=== PATIENT | female | born 1935 | race Caucasian/White ===

== ENCOUNTER 2017-12-22 09:03 | Day surgery (SDC) | payer MEDICARE, OTHER ==
[~2017-12-22 09:03] MED LIST: Acetaminophen TAB* 325 MG PO PRN; Buffered Lidocaine 0.9% SYRIN* 5 ML/SYR SYRINGE INTRADERM ONE
[2017-12-22] MEDS ORDERED: Midazolam* 1 MG/ML 2 ML VIAL (2 MG) ONE ×2 (10:17→10:46)
[2017-12-22] MEDS ORDERED: Tropicamide 1% OPTH.SOL* BTL ONE (11:04)
[2017-12-22] MEDS ORDERED: Lidocaine 1%* 5 ML VIAL ONE (11:04)
[2017-12-22] MEDS ORDERED: fentaNYL* 50 MCG/ML 2 ML VIAL (100 MCG VIAL) ONE (11:04)
[2017-12-22] MEDS ORDERED: Cyclopentolate 1% OPTH.SOL* 2 ML BTL ONE (11:04)
[2017-12-22] MEDS ORDERED: Phenylephrine 2.5% OPTH.SOL* 2 ML BTL ONE (11:04)
[2017-12-22] MEDS ORDERED: Ketorolac 0.5% OPHTH (NF) 0.5 % 5 ML BTL ONE (11:04)
[2017-12-22] MEDS ORDERED: Neomycin/Polymy/Dex OPHTH.OIN* 3.5 GM ONE (11:04)
[2017-12-22] MEDS ORDERED: Tetracaine 0.5% OPTH.SOL 4 ML* 1 DROP BTL ONE (11:04)
[2017-12-22] MEDS ORDERED: Phenylephr/Ketorolac 1%/0.3% OPH DROP BTL ONE (11:05)
[2017-12-22 11:23] VITALS: BP 135/74
--- NOTE | 2017-12-22 14:44 | OP ---
DATE OF OPERATION/DATE OF DICTATION: 12/22/2017 - [facility] DATE OF : 1935. SURGEON: Dr. Jarek Tatum. REAL ESTATE LEASING MANAGER: None. ANESTHESIA: Topical with intravenous sedation. PRE-OP DIAGNOSIS: Cataract, right eye. POST-OP DIAGNOSIS: Cataract, right eye. OPERATIVE PROCEDURE: Phacoemulsification and cataract extraction with posterior chamber intraocular lens implant, right eye. COMPLICATIONS: None. BLOOD LOSS: None. DESCRIPTION OF PROCEDURE: The patient was brought to the operating room and received a small amount of intra-venous sedation. A drop of Tetracaine was placed in her right eye. She was prepped and draped in the usual sterile fashion for ophthalmic surgery and attention was directed to the right eye where a speculum was placed. A paracentesis was created at the 11 o'clock position and 0.1 cc of 1 percent preservative-free Lidocaine was injected into the anterior chamber followed by DisCoVisc. The eye was digitally stabilized while a 2.75 mm keratome was used to create a triplanar clear corneal incision at the 9 o'clock position. A continuous curvilinear capsulorrhexis was created with a cystotome and Utrata forceps. BSS on a cannula was used to hydrodissect the lens from the capsule. Phacoemulsification was performed in a divide-and- conquer technique to create four fragments which were removed. Residual cortical material was removed with irrigation and aspiration. DisCoVisc was used to inflate the capsular bag and an AUOOTO 20.5 diopter lens was folded and inserted into the capsular bag. DisCoVisc was removed using irrigation and aspiration. BSS on a cannula was used to hydrate the corneal stroma and seal the wound. At the end of the case the pupil was round and the lens was centered. The eye was of normal pressure and the wound was water tight. The speculum was removed and topical Maxitrol ointment was placed on the surface of the eye. The eye was closed, patched and shielded and the patient was sent to the recovery room in stable condition with post operative instructions and follow-up appointment given. [id number] #: [id number] MTDD
== END 2017-12-22 11:35 | disposition home or self-care (01) ==
LOC: OREAST 09:03
PROVIDERS: ATTEND Ophthalmology
DX: H25.11 Age-related nuclear cataract, right eye (principal); E78.5 Hyperlipidemia, unspecified; I25.10 Atherosclerotic heart disease of native coronary artery without angina pectoris; K21.9 Gastro-esophageal reflux disease without esophagitis; M19.90 Unspecified osteoarthritis, unspecified site; M81.0 Age-related osteoporosis without current pathological fracture
CPT/HCPCS: A9270-GY; C9447; J2250; J3010; V2632

== ENCOUNTER 2017-12-29 07:39 | Day surgery (SDC) | payer MEDICARE, OTHER ==
[2017-12-29] MEDS ORDERED: Neomycin/Polymy/Dex OPHTH.OIN* 3.5 GM ONE (07:48)
[2017-12-29] MEDS ORDERED: Tropicamide 1% OPTH.SOL* BTL ONE (07:48)
[2017-12-29] MEDS ORDERED: Tetracaine 0.5% OPTH.SOL 4 ML* 1 DROP BTL ONE (07:48)
[2017-12-29] MEDS ORDERED: Lidocaine 1%* 5 ML VIAL ONE (07:48)
[2017-12-29] MEDS ORDERED: Phenylephrine 2.5% OPTH.SOL* 2 ML BTL ONE (07:48)
[2017-12-29] MEDS ORDERED: Cyclopentolate 1% OPTH.SOL* 2 ML BTL ONE (07:48)
[2017-12-29] MEDS ORDERED: Phenylephr/Ketorolac 1%/0.3% OPH DROP BTL ONE ×2 (07:48→11:04)
[2017-12-29] MEDS ORDERED: Ketorolac 0.5% OPHTH (NF) 0.5 % 5 ML BTL ONE (07:48)
[2017-12-29] MEDS ORDERED: Midazolam* 1 MG/ML 2 ML VIAL (2 MG) ONE (09:49)
[2017-12-29 10:35] VITALS: BP 141/70
--- NOTE | 2017-12-30 03:43 | OP ---
DATE OF OPERATION: 12/29/17 [facility] DATE OF : [birth year] SURGEON: Dr. Jarek Tatum. SALES PROJECT ENGINEER: None. ANESTHESIA: Topical with intravenous sedation. PRE-OP DIAGNOSIS: Cataract, left eye. POST-OP DIAGNOSIS: Cataract, left eye. OPERATIVE PROCEDURE: Phacoemulsification and cataract extraction with posterior chamber intraocular lens implant, left eye. COMPLICATIONS: None. BLOOD LOSS: None. DESCRIPTION OF PROCEDURE: The patient was brought to the operating room and received a small amount of intravenous sedation. A drop of Tetracaine was placed in her left eye. She was prepped and draped in the usual sterile fashion for ophthalmic surgery and attention was directed to the left eye where a speculum was placed. A paracentesis was created at the 5 o'clock position and 0.1 cc of 1 percent preservative-free Lidocaine was injected into the anterior chamber followed by DisCoVisc. The eye was digitally stabilized while a 2.75 mm keratome was used to create a triplanar clear corneal incision at the 3 o'clock position. A continuous curvilinear capsulorrhexis was created with a cystotome and Utrata forceps. BSS on a cannula was used to hydrodissect the lens from the capsule. Phacoemulsification was performed in a divide-and- conquer technique to create four fragments which were removed. Residual cortical material was removed with irrigation and aspiration. DisCoVisc was used to inflate the capsular bag and an AUOOTO 20.0 diopter lens was folded and inserted into the capsular bag. DisCoVisc was removed using irrigation and aspiration. BSS on a cannula was used to hydrate the corneal stroma and seal the wound. At the end of the case the pupil was round and the lens was centered. The eye was of normal pressure and the wound was water tight. The speculum was removed and topical Maxitrol ointment was placed on the surface of the eye. The eye was closed, patched and shielded and the patient was sent to the recovery room in stable condition with post operative instructions and follow-up appointment given. [id number]/[id number] #: [id number] BERTHA
== END 2017-12-29 10:40 | disposition home or self-care (01) ==
LOC: OREAST 07:39
PROVIDERS: ATTEND Ophthalmology
DX: H25.12 Age-related nuclear cataract, left eye (principal); I25.10 Atherosclerotic heart disease of native coronary artery without angina pectoris; K21.9 Gastro-esophageal reflux disease without esophagitis; E66.9 Obesity, unspecified
CPT/HCPCS: A9270-GY; C9447; J2250; V2632

== ENCOUNTER 2018-11-03 04:00 | Emergency (ER) | payer MEDICARE ==
[2018-11-03] MEDS ORDERED: NS 0.9% 1000 ML** 1,000 ML IV ONE (04:11)
[2018-11-03] MEDS ORDERED: Morphine 4 MG/ML VIAL (1 ml) 4 MG/ML VIAL IV ONE (04:13)
--- NOTE | 2018-11-03 04:17 | ED ---
Complex/Multi-Sys Presentation - HPI Summary HPI Summary: Patient is a 83 y/o F presenting to ED via EMS from [place] with complaints of impaired speech, difficulty with memory, BARTON, right hip pain, and right sided chest wall pain. EMS reported that they were called due to patient complaints of right sided rib pain and hip pain. She claims that she experienced a mechanical fall around a week ago. She states that she has been experiencing right sided chest wall pain and right hip pain with an exacerbation of pain this morning. During EMS transport, patient began to have complaints of BARTON and difficulty getting words out. However, in the room, the patient claims that her impaired speech and difficulty with memory onset earlier than this. She reports uncertainty of when impaired speech onset but endorses a last known well of 1530. In the room, she endorses sore throat. Fever and abdominal pain are denied. Inspiration is noted to aggravate chest wall pain. On triage, pain is rated 4/10, nothing is noted to aggravate/alleviate Sx. Home medications and allergies are reviewed. - History Of Current Complaint Chief Complaint: EDExtremityLower Hx Obtained From: Patient Onset/Duration: Lasting Hours - last known well of 1530 reported, Lasting Weeks - fall occurred a week ago, Still Present, Worse Since - rib and hip pain worsened this morning Timing: Constant, Hours - last known well of 1530 reported, Weeks - fall occurred a week ago Severity Currently: Moderate Severity Initially: Moderate Location: Pain At: - head, right ribs, right hip Character: Typical Headache Aggravating Factor(s): inspiration Alleviating Factor(s): nothing Associated Signs And Symptoms: Positive: Headache, Other - POSITIVE - IMPAIRED SPEECH, DIFFICULTY WITH MEMORY, RIGHT RIB AND RIGHT HIP PAIN, SORE THROAT. Negative: Abdominal Pain, Fever - Allergies/Home Medications Allergies/Adverse Reactions: Allergies Allergy/AdvReac Type Severity Reaction Status Date / Time amoxicillin [From Augmentin] Allergy GI Upset Verified 12/29/17 08:23 clavulanic acid Allergy GI Upset Verified 12/29/17 08:23 [From Augmentin] gatifloxacin Allergy Shortness Verified 12/29/17 08:23 of Breath metronidazole [From Flagyl] Allergy Unknown Verified 12/29/17 08:23 Reaction Details nitrofurantoin Allergy Unknown Verified 12/29/17 08:23 Reaction Details Quinolones Allergy Unknown Verified 12/29/17 08:23 Reaction Details Sulfa (Sulfonamide Allergy Unknown Verified 12/29/17 08:23 Antibiotics) Reaction Details CRAB/SHRIMP/LOBSTER Allergy Unknown Uncoded 12/29/17 08:23 Reaction Details PMH/Surg Hx/FS Hx/Imm Hx Endocrine/Hematology History: Denies: Hx Diabetes Cardiovascular History: Reports: Hx Hypercholesterolemia, Other Cardiovascular Problems/Disorders - CARDIAC CATH 2010, HLD Denies: Hx Hypertension, Hx Pacemaker/ICD Respiratory History: Reports: Other Respiratory Problems/Disorders - 03/01/16 recent cold GI History: Reports: Hx Diverticulosis, Hx Gastroesophageal Reflux Disease - ON MEDICATION FOR, Other GI Disorders - hx diverticulitis dx several yrs ago History: Denies: Hx Dialysis, Hx Renal Disease Musculoskeletal History: Reports: Hx Arthritis, Hx Osteoporosis, Other Musculoskeletal History - spinal stenosis, arthritis/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 BACK SURGERY- 3 YEARS AGO Hx Anesthesia Reactions: Yes - MANY YEARS AGO- X1 SLOW TO WAKE UP - Immunization History Date of Influenza Vaccine: 03/2013 Infectious Disease History: No Infectious Disease History: Denies: Traveled Outside the [place] in Last 30 Days - Family History Family History: FHx of Breast Cancer (Mother) - Social History Alcohol Use: Daily Alcohol Amount: 1 SHOT PER NIGHT Substance Use Type: Reports: None Smoking Status (MU): Never Smoked Tobacco Review of Systems Negative: Fever Positive: Sore Throat Negative: Abdominal Pain Musculoskeletal: Other - POSITIVE - RIGHT RIB PAIN, RIGHT HIP PAIN Neurological: Other - POSITIVE - IMPAIRED SPEECH, DIFFICULTY WITH MEMORY Positive: Headache All Other Systems Reviewed And Are Negative: Yes Physical Exam - Summary Physical Exam Summary: Appearance: well appearing, no pain distress Skin: warm, dry, reflects adequate perfusion Head/face: normal Eyes: EOMI, HALIMA ENT: mucous membranes moist Neck: supple, non-tender Respiratory: fine crackles are noted, breath sounds present Cardiovascular: RRR, pulses symmetrical Abdomen: non-tender, soft Bowel Sounds: present Musculoskeletal: normal, strength/ROM intact; pain at right lateral chest wall with no bruising Neuro: normal, sensory motor intact, A&Ox3, speech is fluent with some occasional slow speech, GCS 15, NIH 0 Triage Information Reviewed: Yes Vital Signs On Initial Exam: Initial Vitals Temp Pulse Resp BP Pulse Ox 97.6 F 72 18 165/77 95 11/03/18 04:03 11/03/18 04:03 11/03/18 04:03 11/03/18 04:03 11/03/18 04:03 Vital Signs Reviewed: Yes - Opal Coma Scale Best Eye Response: 4 - Spontaneous Best Motor Response: 6 - Obeys Commands Best Verbal Response: 5 - Oriented Coma Scale Total: 15 Diagnostics - Vital Signs Vital Signs Temp Pulse Resp BP Pulse Ox 11/03/18 04:03 97.6 F 72 18 165/77 95 - Laboratory Result Diagrams: 11/03/18 04:21 11/03/18 04:21 Lab Statement: Any lab studies that have been ordered have been reviewed, and results considered in the medical decision making process. - Radiology RIBS W/ CHEST X-RAY Radiology Interpretation Completed By: ED Physician Summary of Radiographic Findings: RIGHT CHEST WALL DEFORMITY CONSISTENT WITH RIB FRACTURES, PENDING OFFICIAL REPORT. RIGHT HIP/PELVIS X-RAY Radiology Interpretation Completed By: ED Physician Summary of Radiographic Findings: DEGENERATIVE CHANGES, CANNOT RULE OUT FRACTURE AT RIGHT FEMORAL NECK, PENDING OFFICIAL REPORT. - CT BRAIN CT CT Interpretation Completed By: Radiologist Summary of CT Findings: IMPRESSION: 1. No acute intracranial abnormality. 2. Moderate parechymal volume loss with interval worsening of microvascular. white matter disease since prior study of 2013. THIS REPORT WAS REVIEWED BY DR. ROMAN. RIGHT PELVIC CT CT Interpretation Completed By: Radiologist Summary of CT Findings: IMPRESSION: Apparent linear cortical lucency in the right ischium, best seen on image 84. series 3, which may represent a nondisplaced fracture. THIS REPORT WAS REVIEWED BY DR. ROMAN. - EKG 0453 Cardiac Rate: NL - rate of 62 BPM EKG Rhythm: Sinus Rhythm ST Segment: Non-Specific Summary of EKG Findings: EKG showed sinus rhythm with rate of 62 BPM, normal axis, non-specific ST. National Institutes Of Health - NIH Scale Level of Consciousness: Alert/Keenly Responsive Ask Patient the Month and His/Her Age: Both Correct Ask Pt to Open/Close Eyes and Teacher Aide Clerical/Release Non-Paretic Hand: Both Correctly Best Gaze (Only Horizontal Eye Movement): Normal Visual Field Testing: No Visual Loss Facial Paresis-Pt to Smile & Close Eyes or Grimace Symmetry: Normal/Symmetrical Motor Function - Right Arm: No Drift-Holds 10 Seconds Motor Function - Left Arm: No Drift-Holds 10 Seconds Motor Function - Right Leg: No Drift-Holds 10 Seconds Motor Function - Left Leg: No Drift-Holds 10 Seconds Limb Ataxia-Must be out of Proportion to Weakness Present: Absent Sensory (Use Pinprick to Test Arms/Legs/Trunk/Face): Normal Best Language (Describe Picture, Name Items): No Aphasia Dysarthria (Read Several Words): Normal Extinction and Inattention: No Abnormality Total Score: 0 Re-Evaluation - Re-Evaluation First Eval Re-Evaluation Time: 06:25 Change: Improved Comment: Patient reports improvement of pain, word finding is better. Discussed results of labs and tests with the patient. She is agreeable with admission. Complex Multi-Symp Course/Dx Course Of Treatment: Patient with several complaints today. She has pain in her right chest wall and right hip after falling. There are fractures of the ribs and a nondisplaced fracture the issue him on CT. She also had difficulty with word finding though her NIH stroke score was 0 at time of arrival. There is some occasional slowed speech but she has fluent. Her head CT and stroke workup otherwise have been negative. She was improving with hydration and treatment of discomfort. A Lidoderm patch has made her chest wall much better. She will be admitted for physical therapy, orthopedics, neurology evaluation. Hospitalist team will admit. - Diagnoses Differential Diagnoses/HQI/PQRI: CVA, Metabolic Abnormality, Sepsis, Urinary Tract Infection, Other - Rib, hip fractures Provider Diagnoses: Right rib fracture, Hip fracture, right, Mild aphasia, TIA (transient ischemic attack) - Physician Notifications Discussed Care Of Patient With: Sola Vogel Time Discussed With Above Provider: 06:32 Instructed by Provider To: Other - 0632 - Patient's case was discussed with Dr. Vogel, Dr. Vogel accepts for admission. - Critical Care Time Critical Care Time: 30-74 min - CCT is EXCLUSIVE of separately billable procedures. Discharge - Sign-Out/Discharge Documenting (check all that apply): Patient Departure - admit Patient Received Moderate/Deep Sedation with Procedure: No - Discharge Plan Condition: Fair Disposition: ADMITTED TO [facility] Referrals: Owen Moraes MD [Primary Care Provider] - - Billing Disposition and Condition Condition: FAIR Disposition: Admitted to [facility] - Attestation Statements Document Initiated by Scribe: Yes Documenting Scribe: DUSTIN TEMPLE Provider For Whom Scribe is Documenting (Include Credential): TL ROMAN MD Scribe Attestation: IDUSTIN, scribed for TL ROMAN MD on 11/03/18 at 0707. Scribe Documentation Reviewed: Yes Provider Attestation: The documentation as recorded by the DUSTIN patel accurately reflects the service I personally performed and the decisions made by me, TL ROMAN MD Status of Scribe Document: Viewed
[2018-11-03 04:30] LABS: ABS Basophils 0.1 10^3/ul (0-0.2); ABS Eosinophils 0.3 10^3/ul (0-0.6); ABS Lymphocytes 3.6 10^3/ul (1.0-4.8); ABS Neutrophils 3.7 10^3/ul (1.5-7.7); Eosinophil % 3.6 %; Hematocrit 37 % (35-47); Hemoglobin 12.4 g/dL (12.0-16.0); Lymphocyte % 41.5 %; Mean Corpuscular HGB Conc 33 g/dL (31-36); Mean Corpuscular Hemoglobin 30 pg (27-31); Mean Corpuscular Volume 91 fL (80-97); Mean Platelet Volume 7.4 fL (7.4-10.4); Platelet Count 368 10^3/uL (150-450); Red Cell Distribution Width 14 % (10.5-15); White Blood Count 8.6 10^3/uL (3.5-10.8)
[2018-11-03 04:36] LABS: Activated Partial Thrombo Time 30.6 seconds (26.0-36.3); INR 0.89 (0.82-1.09)
[2018-11-03 04:46] LABS: Albumin 4.1 g/dL (3.2-5.2); Albumin/Globulin Ratio 1.6 (1-3); BUN/Creatinine Ratio 12.2 (8-20); Calcium 9.8 mg/dL (8.6-10.3); EGFR African American 90.5 (>60); EGFR Non-African American 74.8 (>60); Globulin 2.6 g/dL (2-4); HDL Cholesterol 51.1 mg/dL; Potassium 4.1 mmol/L (3.5-5.0); Total Bilirubin 0.2 mg/dL (0.2-1.0); Total Protein 6.7 g/dL (6.4-8.9)
[2018-11-03 04:47] LABS: Troponin I 0.01 ng/mL (<0.04)
[2018-11-03] MEDS ORDERED: Lidocaine PATCH 5%* 1 PATCH TRANSDERM ONE (05:11)
[2018-11-03 05:22] LABS: Urine Appearance Clear; Urine Bacteria Absent (Absent); Urine Bilirubin Negative (Negative); Urine Blood 1+ (Negative); Urine Color Straw; Urine Glucose Negative (Negative); Urine Ketones Negative (Negative); Urine Nitrite Negative (Negative); Urine Protein Negative (Negative); Urine Red Blood Cell Trace(0-2/hpf) (Absent); Urine Specific Gravity 1.003 (1.010-1.030); Urine Squamous Epithelial Cell Present (Absent); Urine Urobilinogen Negative (Negative); Urine White Blood Cell Absent (Absent)
[2018-11-03] MEDS ORDERED: Aspirin 81 mg CHEW TAB* 81 MG TAB.CHEW PO ONE (06:26)
--- NOTE | 2018-11-03 10:26 | UC ---
- Progress Note Progress Note: Pt was to be admitted to the hospitalist at signout Pt was just evaluated by Dr. Alarcon - pt requesting d/c home - she will provide full consult note REquested I write discharge instructioins for pt - Rx lidocaine f/u with PCP within 1 week - call today to schedule Dr. Moraes will order outpt PT at [facility] Course/Dx - Diagnoses Provider Diagnoses: Right rib fracture, Hip fracture, right, Mild aphasia, TIA (transient ischemic attack) - Provider Notifications Time Discussed With Above Provider: 06:32 Instructed by Provider To: Other - 0632 - Patient's case was discussed with Dr. Vogel, Dr. Vogel accepts for admission. - Critical Care Time Critical Care Time: 30-74 min - CCT is EXCLUSIVE of separately billable procedures. Discharge - Sign-Out/Discharge Documenting (check all that apply): Patient Departure Patient Received Moderate/Deep Sedation with Procedure: No - Discharge Plan Condition: Improved Disposition: HOME Prescriptions: Lidocaine PATCH 5%* [Lidoderm 5% Patch*] 1 patch TRANSDERM DAILY #30 patch Patient Education Materials: Pelvic Fracture (ED), Rib Contusion (ED) Referrals: Michael Renteria MD [Medical Doctor] - Owen Moraes MD [Primary Care Provider] - (You have an appointment schedule with Dr. Moraes at 11/19/18 at 10:30-am ) Additional Instructions: Okay to use lidocaine pain patches as prescribed - place over ribs - apply for 12 hours, remove for [address] Moraes will be ording physical therapy for care at [facility] Okay to take Tylenol as needed for pain Take deep, slow breaths You have an appointment scheduled with Dr. Moraes November 19 at 10:30am Contact the orthopedic provider, Dr. Renteria, for follow-up regarding your pelvic fracture - - Billing Disposition and Condition Condition: IMPROVED Disposition: Home
--- NOTE | 2018-11-03 10:52 | CONSULT ---
Subjective Date of Service: 11/03/18 Interval History: 83 yo F with PMH CAD, chronic low back pain, HLD, depression, possibly mild cognitive impairment who came to the emergency room via EMS on the morning on with several complaints. Lakeshia reports she had a fall one week ago, mechanical, fell onto R hip without LOC or head trauma. She has had waxing and waining pain responsive tsult. Pain is sharp and shooting, radiates to sternum from R axilla, reproducible by pressing, R hip pain starts in low back and radiates 4/10, not far off of baseline.o Tylenol and Ibuprofen but this morning had acute pain that awoke her form sleep under R breast as well as R hip, she decided to call EMS as a re Apparently en route to ER EMS notes pt had word finding difficulty, slurred speech, this completely resolved by time of arrival to ER. Her NIH stroke scale was 0 and GCS was 15. The event lasted for only a few seconds. She is AOx3 at baseline and independent in IADLS, moved to [place] a year ago after having difiuclty keeping up w/ reposnibility of her house On further review with her and her son, they report she has had "spells" like this word finding and slurred speech during times of anxiety and depression for years, they also reveal she has mild cognitive impairment and hx of short term memory loss that has been going on for a year "or two" which actually prompted the move to [place]. They are wholly unconcerned about the event and I offer her workup for TIA, they decline. Her ER course is notable for normal vitals, labs, and brain imaging. In regards ot her MSK complaints she is read to have a hairline ischial fracture, rib imaging unremarkable, pain completely resided with lidocaine patch. Ortho was paged and Dr Renteria read the CT himself and recommends weight bearing as tolerated and outpatient PT, no interventions I reached out to Dr. Macedo office who will send order for outpatient PT, pt and her son very much want to be d/c to home as she has a book club to attend in the evening. She feels pain is wholly resolved and they are not concerned about her word finding event and decline any further workup as she says its not really within her goals of care. 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 [place], Social: Drinks 1 glass wine nightly, Tob: Never, Illicits: Never Past Medical History: Unchanged from Admission - GERD, CAD, ?MCI, HLD, chronic low back s/p distant back surgery Review of Systems - Measurements Intake and Output: Intake and Output Last 24 Hours 11/01/18 11/02/18 11/03/18 11/04/18 06:59 06:59 06:59 06:59 Intake Total 1000 Balance 1000 Weight 180 lb Intake: IV Fluids 1000 - Review of Systems Constitutional Symptoms: Negative: Weight Gain, Weight Loss, Weakness, Fatigue, Fever, Night Sweats, Unexplained Falls, Other Dermatology: Negative: Normal, Rash, Skin Lesions, Cancer, Skin Lumps, Other HEENT: Negative: Normal, Change in Hearing, Vertigo, Dental Problems, Tinnitus, Sinus Problem, Other Eyes: Negative: Normal, Change in Vision, Double Vision, Eye Pain, Glaucoma, Cataract, Contacts or Glasses, Other Thyroid: Negative: Normal, Goiter, Thyroid Nodule, Cold Intolerance, Heat Intolerance , Sweatiness, Tremor, Frequent Defecation, Constipation, Palpitations, Primary Hypothyroidism, Primary Hyperthyroidism, Weight Loss, Weight Gain, Change in Skin/Hair, Change in Menstruation, Radiation Exposure, Other Pulmonary: Negative: Normal, Cough, Sputum, Hemoptysis, Wheezing, Respiratory Distress, Shortness of Breath, COPD, Asthma, Exercise Intolerance, Home Oxygen, Other Cardiology: Negative: Normal, Chest Pain, Shortness of Breath, Palpitations, Swelling of Ankles, Peripheral Vascular Dis, Edema, Faintness, Syncope, Claudication, Proximal NocturnalDyspnea, Orthopnoea, Other Gastroenterology: Negative: Normal, Abdominal Pain, Nausea, Vomiting, Anorexia, Indigestion, Difficulty Swallowing, Heartburn, Constipation, Diarrhea, Blood in Stools, Change in Bowel Habits, Haematemesis, Melena, Other Genital - Urinary: Negative: Normal, Dysuria, Hematuria, Polyuria, Nocturia, Other Genitourinay - Female: Negative: Menses Normal, Vaginal Discharge, Menopause, Dysmenorrhea, Other Musculoskeletal: Positive: Joint Pain, Arthritis, Sciatica Endocrinology: Negative: Normal, Thyroid Problems, Adrenal Problems, Gonadal Problems, Family Hx Endocrine Disorders, Obesity, Diabetes Mellitus, Hyperglycemia, Hx Hypoglycemia, Diabetic Foot Ulcers, Calluses, Hirsutism, Menstrual Abnormalities , Polydipsia, Polyuria, Gonadal Problems, Gynecomastia, Pituitary disease, Other Hematologic/Lymphatic: Negative: Anemia, Easy Bruising, Hx Leukemia, Hx Lymphoma, Use of Anticoagulant, Use of Antiplatelet Drugs, Other Neurology: Positive: Change in Speech - Chronic-during stress/anxiety Psychiatry: Positive: Depression - Worsening since dog , Anxiety Allergic/Immunologic: Negative: Hx Anaphylaxis, Hx Angioedema, Hx Environmental, Hx Seasonal, Asthma, Hx HIV, Immunocompromise, Swollen Glands LymphNodes, Other Objective Active Medications: Pharmacy Profile Note (Lidocaine Patch Remove*) 1 note PATCH OFF 1730 ELLEN Vital Signs - 8 hr 11/03/18 11/03/18 11/03/18 04:03 04:11 05:00 Temperature 97.6 F Pulse Rate 72 62 61 Respiratory 18 19 20 Rate Blood Pressure 165/77 150/96 (mmHg) O2 Sat by Pulse 95 95 94 Oximetry 11/03/18 11/03/18 11/03/18 05:15 05:35 06:00 Temperature Pulse Rate 59 58 Respiratory 24 21 19 Rate Blood Pressure 166/70 154/84 (mmHg) O2 Sat by Pulse 95 94 Oximetry 11/03/18 11/03/18 06:12 06:42 Temperature Pulse Rate Respiratory 17 19 Rate Blood Pressure 137/82 140/67 (mmHg) O2 Sat by Pulse Oximetry Oxygen Devices in Use Now: None Appearance: Pleasant woman in NAD in stretcher Eyes: No Scleral Icterus, PERRLA Ears/Nose/Mouth/Throat: NL Teeth, Lips, Gums, Clear Oropharnyx, Mucous Membranes Moist Neck: NL Appearance and Movements; NL JVP Respiratory: Symmetrical Chest Expansion and Respiratory Effort, Clear to Auscultation Cardiovascular: NL Sounds; No Murmurs; No JVD, RRR Abdominal: NL Sounds; No Tenderness; No Distention, No Hepatosplenomegaly, - - Distended Lymphatic: No Cervical Adenopathy, No Axillary Adenopathy Extremities: No Edema Skin: No Rash or Ulcers Neurological: Alert and Oriented x 3, NL Sensation, NL Muscle Strength and Tone , - - Gait is slow and careful. CN 2-12 intact, 5/5 strength in all 4 limbs, tearful at times when discussing dog Result Diagrams: 11/03/18 04:21 11/03/18 04:21 Diagnostic Imaging: CT Pelvis: Small non discplaced fracture R ischeium Rib Radiograph: Neg CTH: Parencymal volume loss but no acute intracranial abnormality Assessment/Plan - Billing 83 yo F with PMH CAD, chronic low back pain, HLD, depression, possibly mild cognitive impairment who came to the emergency room via EMS on the morning on with c/o hip pain found to have R non dispclaced ischial fracture that orthopedics reported no intervention is needed aside from pain control and PT She also has sub acute memory issues that seem related to depression, possible MCI, without any findings of acute CVA we offer further neuro workup but she and her son decline Plan By Medical Problem: 1. R ischial non discplaced hairline fracture: WBAT, ortho reviewed scans, pain control Tylenol Ibuprofen and lidocaine patches (we will rx) -Consider DEXA as an outpatient -Continue PT 2. Mild Cog impairment: PCP to workup as patient allows, consider tx for geriatric depression 3. CAD: Trop neg, no active issues, consider statin 4. CLBP: Hardware in place on imaging, no red flag features, conservative 5. GERD: PPI 5. Code status: DNR DNI She is stable for d/c from a medical standpoint, we have arranged for outpatient PT at [facility] and set up an appt with Dr. Macedo office, IRWIN Regan on November 19 at 10:30AM Thank you for this interesting consult, please call medicine for questions Attending: Rhea Alarcon
[2018-11-03 11:42] VITALS: BP 145/92
[2018-11-03] MEDS ORDERED: Lidocaine Patch REMOVE* 1 NOTE MISC PATCH OFF SCH (17:30)
== END 2018-11-03 11:43 | disposition home or self-care (01) ==
LOC: ED 04:00
DX: G45.9 Transient cerebral ischemic attack, unspecified (principal); S22.31XA Fracture of one rib, right side, initial encounter for closed fracture; S72.001A Fracture of unspecified part of neck of right femur, initial encounter for closed fracture; R47.01 Aphasia; W19.XXXA Unspecified fall, initial encounter; K21.9 Gastro-esophageal reflux disease without esophagitis; Z79.899 Other long term (current) drug therapy
CPT/HCPCS: 36415; 70450; 72192; 80053; 80061; 81003; 81015; 83605; 84484; 85025; 85610; 85730; 86850; 86900; 86901; 87086; 93005; 96361; 96374; 99282; A9270-GY; J2270

== ENCOUNTER 2019-09-06 11:27 | Emergency (ER) | payer MEDICARE ==
--- NOTE | 2019-09-06 11:36 | ED ---
Dizziness - HPI Summary HPI Summary: This patient is an 84 y/o female presenting to [facility] via EMS c/o dizziness x2 weeks. Patient describes dizziness as room spinning and states these episodes last hours. She reports dizziness is constant but there are periods where her dizziness becomes worse. EMS states patient has had two episodes where she almost passed out. Patient notes a few days ago had dizziness and when she tried to get out of bed she "smashed" on the side of the bed. Denies any fever, tinnitus, weakness in arms or legs, chest pain palpitations. Patient reports both legs ache and currently has back pain. She uses a walker for ambulation. Patient denies any PMHx. She only takes supplements every day. Patient denies tobacco, alcohol, and drug use. Patient lives at home alone. Medications reviewed. Allergies noted. - History Of Current Complaint Stated Complaint: DIZZINESS PER EMS Hx Obtained From: Patient Onset/Duration: Still Present Timing: Weeks Severity Currently: Mild Character: Room Spinning Aggravating Factor(s): Nothing Alleviating Factor(s): Nothing Associated Signs And Symptoms: Positive: Other:. Negative: Tinnitus, Chest Pain , Palpitations, Fever - Allergies/Home Medications Allergies/Adverse Reactions: Allergies Allergy/AdvReac Type Severity Reaction Status Date / Time amoxicillin [From Augmentin] Allergy GI Upset Verified 09/06/19 11:38 clavulanic acid Allergy GI Upset Verified 09/06/19 11:38 [From Augmentin] gatifloxacin Allergy Shortness Verified 09/06/19 11:38 of Breath metronidazole [From Flagyl] Allergy Unknown Verified 09/06/19 11:38 Reaction Details nitrofurantoin Allergy Unknown Verified 09/06/19 11:38 Reaction Details Quinolones Allergy Unknown Verified 09/06/19 11:38 Reaction Details Sulfa (Sulfonamide Allergy Unknown Verified 09/06/19 11:38 Antibiotics) Reaction Details CRAB/SHRIMP/LOBSTER Allergy Unknown Uncoded 09/06/19 11:38 Reaction Details Home Medications: Home Medications Aspirin 81 mg CHEW TAB* 81 mg PO DAILY 08/25/12 [History Confirmed 09/06/19] Omeprazole CAP (NF) [Prilosec CAP* 20 MG] 40 mg PO DAILY 08/25/12 [History Confirmed 09/06/19] Multivitamin [Multivitamins] 1 cap PO DAILY 10/05/13 [History Confirmed 09/06/19 ] Lactobacillus Acidophilus [Probiotic] 1 cap PO DAILY 03/01/16 [History Confirmed 09/06/19] Calcium Carb/Mag Ox/Zinc Sulf [Calcium & Magnesium + Zin 334-134-5 mg] 1 tab PO TID 09/06/19 [History Confirmed 09/06/19] Cyclosporine 0.05% OPHTH (NF) [Restasis 0.05% OPHTH] 0.05 % BOTH EYES Q12H 09/05 [History Confirmed 09/06/19] EPINEPHrine [Epipen-Jr 2-King] 0.15 mg IM ONCE PRN 09/06/19 [History Confirmed ] Meclizine TAB* [Antivert 12.5 TAB*] 25 mg PO TID PRN #12 tab 09/06/19 [Rx] Red Yeast Rice 1,200 mg PO BID 09/06/19 [History Confirmed 09/06/19] PMH/Surg Hx/FS Hx/Imm Hx Endocrine/Hematology History: Denies: Hx Diabetes, Hx Thyroid Disease Cardiovascular History: Reports: Hx Hypercholesterolemia, Other Cardiovascular Problems/Disorders - CARDIAC CATH 2010, HLD Denies: Hx Hypertension, Hx Pacemaker/ICD, Hx Peripheral Vascular Disease Respiratory History: Reports: Other Respiratory Problems/Disorders - 03/01/16 recent cold GI History: Reports: Hx Diverticulosis, Hx Gastroesophageal Reflux Disease - ON MEDICATION FOR, Other GI Disorders - hx diverticulitis dx several yrs ago History: Denies: Hx Dialysis, Hx Renal Disease Musculoskeletal History: Reports: Hx Arthritis, Hx Osteoporosis, Other Musculoskeletal History - spinal stenosis, arthritis/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 Sensory History: Reports: Hx Hearing Aid - LEFT EAR Denies: Hx Cataracts, Hx Contacts or Glasses, Hx Glaucoma Opthamlomology History: Denies: Hx Cataracts, Hx Contacts or Glasses, Hx Glaucoma Neurological History: Reports: Hx Headaches, Other Neuro Impairments/Disorders - sciatica right chronic Psychiatric History: Reports: Hx Anxiety, Hx Depression - Worsening since dog Denies: Hx Panic Disorder - Cancer History Hx Chemotherapy: No Hx Radiation Therapy: No - Surgical History Surgical History: Yes Surgery Procedure, Year, and Place: PARTIAL HYSTERECTOMY ,GALLBLADDER 1999, APPENDECTOMY, heart cath 2010. BACK SURGERY- 3 YEARS AGO Hx Anesthesia Reactions: Yes - MANY YEARS AGO- X1 SLOW TO WAKE UP - Immunization History Date of Influenza Vaccine: 03/2013 Infectious Disease History: No Infectious Disease History: Denies: Traveled Outside the [place] in Last 30 Days - Family History Family History: FHx of Breast Cancer (Mother) - Social History Alcohol Use: Daily Alcohol Amount: 1 SHOT PER NIGHT Substance Use Type: Reports: None Smoking Status (MU): Never Smoked Tobacco Review of Systems Negative: Fever Negative: Other - NEGATIVE: tinnitus Negative: Palpitations, Chest Pain Musculoskeletal: Other - POSITIVE: leg pain Neurological/Mental Status: Other - POSITIVE: dizziness Negative: Weakness All Other Systems Reviewed And Are Negative: Yes Physical Exam - Summary Physical Exam Summary: Constitutional: Well-developed, Well-nourished, Alert. (-) Distressed Skin: Warm, Dry HENT: Normocephalic; Atraumatic Eyes: Conjunctiva normal. No nystagmus. Neck: Musculoskeletal ROM normal neck. (-) JVD, (-) Stridor, (-) Tracheal deviation Cardio: Rhythm regular, rate normal, Heart sounds normal; Intact distal pulses. Radial pulses are 2+ and symmetric. (-) Murmur Pulmonary/Chest wall: Effort normal. (-) Respiratory distress, (-) Wheezes, (-) Rales Abd: Soft. (-) Tenderness, (-) Distension, (-) Guarding, (-) Rebound Musculoskeletal: (-) Edema Lymph: (-) Cervical adenopathy Neuro: Alert, Oriented x3, Strength normal, Cranial nerves II-XII are grossly intact. (-) Dysmetria, (-) Nystagmus, (-) Ataxia by finger to nose testing, (-) Sensory deficit. Psych: Mood and affect Normal Triage Information Reviewed: Yes Vital Signs On Initial Exam: Initial Vitals Temp Pulse Resp BP Pulse Ox 98.6 F 72 18 199/98 98 09/06/19 11:28 09/06/19 11:28 09/06/19 11:28 09/06/19 11:28 09/06/19 11:28 Vital Signs Reviewed: Yes Procedures - Sedation Patient Received Moderate/Deep Sedation with Procedure: No Diagnostics - Vital Signs Vital Signs Temp Pulse Resp BP Pulse Ox 09/06/19 11:28 98.6 F 72 18 199/98 98 - Laboratory Result Diagrams: 09/06/19 11:54 09/06/19 11:54 Lab Statement: Any lab studies that have been ordered have been reviewed, and results considered in the medical decision making process. - CT Head/Neck CTA CT Interpretation Completed By: Radiologist Summary of CT Findings: IMPRESSION: 1. Chronic small vessel ischemic change. 2. Atherosclerosis. 3. No internal carotid artery stenosis by nascet criteria. 4. No aneurysm, vascular malformation, occlusion, or stenosis of the visualized intracranial circulation. Dr. Willingham has reviewed this report. - EKG 11:45 Cardiac Rate: NL - at 66 bpm EKG Rhythm: Sinus Rhythm EKG Comparison: No Significant Change - from prior on 11/03/18. Summary of EKG Findings: EKG at 1145 shows sinus rhythm at a rate of 66 bpm. No change from prior EKG on 11/03/18. This EKG was interpreted and reviewed by ED physician. National Institutes Of Health - NIH Scale Level of Consciousness: Alert/Keenly Responsive Ask Patient the Month and His/Her Age: Both Correct Ask Pt to Open/Close Eyes and Spout Worker/Release Non-Paretic Hand: Both Correctly Best Gaze (Only Horizontal Eye Movement): Normal Visual Field Testing: No Visual Loss Facial Paresis-Pt to Smile & Close Eyes or Grimace Symmetry: Normal/Symmetrical Motor Function - Right Arm: No Drift-Holds 10 Seconds Motor Function - Left Arm: No Drift-Holds 10 Seconds Motor Function - Right Leg: No Drift-Holds 10 Seconds Motor Function - Left Leg: No Drift-Holds 10 Seconds Limb Ataxia-Must be out of Proportion to Weakness Present: Absent Sensory (Use Pinprick to Test Arms/Legs/Trunk/Face): Normal Best Language (Describe Picture, Name Items): No Aphasia Dysarthria (Read Several Words): Normal Extinction and Inattention: No Abnormality Total Score: 0 Re-Evaluation - Re-Evaluation First Eval Re-Evaluation Time: 11:41 Comment: Jean-Claude, ED RN, states patient is reporting disturbances she describes as "lightning and color changes". Also reports throat pain and tongue itching that started a few minutes ago. Second Eval Re-Evaluation Time: 14:33 Change: Improved Comment: Patient was ambulated. She feels safe going home. Dizzy Course/Dx - Course Course Of Treatment: Patient is here with episodic vertigo over the past 2 weeks. Patient has a normal neurologic exam upon arrival. She had a CTA of her head/neck which was unremarkable for any acute changes. Patient had blood performed as grossly unremarkable. Patient had an EKG which showed no ischemic changes or evidence of underlying arrhythmia. Patient was able to ambulate prior to discharge. Patient was comfortable with being discharged - Diagnoses Provider Diagnoses: Vertigo Discharge ED - Sign-Out/Discharge Documenting (check all that apply): Patient Departure - Discharge home - Discharge Plan Condition: Stable Disposition: HOME Prescriptions: Meclizine TAB* [Antivert 12.5 TAB*] 25 mg PO TID PRN #12 tab PRN Reason: Dizziness Patient Education Materials: Vertigo (ED) Referrals: Owen Moraes MD [Primary Care Provider] - Additional Instructions: Take your medications as prescribed. Please follow up with Dr. Moraes, your primary care provider, in 1-3 days. PLEASE RETURN TO EMERGENCY DEPARTMENT FOR ANY NEW OR WORSENING SYMPTOMS. - Billing Disposition and Condition Condition: STABLE Disposition: Home - Attestation Statements Document Initiated by Scribe: Yes Documenting Scribe: Tori Sanford Provider For Whom Gen is Documenting (Include Credential): Fabrizio Willingham MD Scribe Attestation: Tori Montoya, scribed for Fabrizio Willingham MD on 09/06/19 at 1703. Scribe Documentation Reviewed: Yes Provider Attestation: The documentation as recorded by the Tori patel accurately reflects the service I personally performed and the decisions made by , Fabrizio Willingham MD Status of Scribe Document: Viewed
[2019-09-06 12:11] LABS: ABS Basophils 0.1 10^3/ul (0-0.2); ABS Eosinophils 0.3 10^3/ul (0-0.6); ABS Lymphocytes 1.9 10^3/ul (1.0-4.8); ABS Monocytes 0.5 10^3/ul (0-0.8); ABS Neutrophils 2.5 10^3/ul (1.5-7.7); Hematocrit 40 % (35-47); Lymphocyte % 36.9 %; Mean Corpuscular HGB Conc 35 g/dL (31-36); Mean Corpuscular Hemoglobin 32 pg (27-31); Mean Corpuscular Volume 91 fL (80-97); Mean Platelet Volume 7.8 fL (7.4-10.4); Platelet Count 380 10^3/uL (150-450); Red Blood Count 4.37 10^6 /uL (3.70-4.87); Red Cell Distribution Width 14 % (10-15); White Blood Count 5.2 10^3/uL (3.5-10.8)
[2019-09-06 12:30] LABS: Albumin 4.4 g/dL (3.2-5.2); Albumin/Globulin Ratio 1.6 (1-3); BUN/Creatinine Ratio 12.2 (8-20); EGFR African American 90.3 (>60); EGFR Non-African American 74.6 (>60); Globulin 2.8 g/dL (2-4); Potassium 4.3 mmol/L (3.5-5.0); Total Bilirubin 0.4 mg/dL (0.2-1.0); Total Protein 7.2 g/dL (6.4-8.9)
[2019-09-06 12:41] LABS: Urine Appearance Clear; Urine Bilirubin Negative (Negative); Urine Blood Negative (Negative); Urine Color Straw; Urine Glucose Negative (Negative); Urine Ketones Negative (Negative); Urine Nitrite Negative (Negative); Urine Protein Negative (Negative); Urine Specific Gravity 1.008 (1.010-1.030); Urine Urobilinogen Negative (Negative)
[2019-09-06 12:49] LABS: Urine Bacteria Absent (Absent); Urine Red Blood Cell Trace(0-2/hpf) (Absent); Urine Squamous Epithelial Cell Present (Absent); Urine White Blood Cell 2+(11-20/hpf) (Absent)
[2019-09-06] MEDS ORDERED: NS 0.9% 1000 ML** 1,000 ML IV ONE (12:51)
[2019-09-06] MEDS ORDERED: Iohexol 350* (CONTRAST) 500 ML MDV IV ONE (13:42)
[2019-09-06] MEDS ORDERED: Meclizine TAB* 12.5 MG PO ONE (13:55)
[2019-09-06 15:29] VITALS: BP 170/96
== END 2019-09-06 16:57 | disposition home or self-care (01) ==
LOC: ED 11:27
DX: R42 Dizziness and giddiness (principal); E78.00 Pure hypercholesterolemia, unspecified; K21.9 Gastro-esophageal reflux disease without esophagitis; F41.9 Anxiety disorder, unspecified; F32.9 Major depressive disorder, single episode, unspecified; Z90.711 Acquired absence of uterus with remaining cervical stump; Z90.49 Acquired absence of other specified parts of digestive tract; Z90.89 Acquired absence of other organs; Z79.82 Long term (current) use of aspirin; Z79.899 Other long term (current) drug therapy; Z88.0 Allergy status to penicillin; Z88.1 Allergy status to other antibiotic agents; Z88.2 Allergy status to sulfonamides
CPT/HCPCS: 36415; 70496; 70498; 80053; 81003; 81015; 83880; 84484; 85025; 87086; 93005; 96360; 99283; A9270-GY; Q9967

== ENCOUNTER 2019-09-21 06:42 | Emergency (ER) | payer MEDICARE ==
[2019-09-21] MEDS ORDERED: NS 0.9% 1000 ML** 1,000 ML IV ONE (07:28)
--- NOTE | 2019-09-21 07:29 | ED ---
HPI Chest Pain - HPI Summary HPI Summary: This patient is an 84 y/o female presenting to [facility] via EMS from [place] c/o chest pain onset last evening. Patient describes her chest pain "an elephant sitting" on her chest that is nonradiating. She notes associated nausea, abd pain, difficulty breathing, headache. Denies vomiting. Patient also c/o abdominal pain, described as an "ache everywhere." Her last bowel movement was last night. Denies bloody stools. Patient denies any recent cold symptoms. However states she developed a sore throat last night. Denies fever, cough, back pain. Pt received 324mg aspirin and nitro x1 by EMS [employer] today. Patient reports she has never had this chest pain or abdominal pain in the past. Denies any hx of [place]. Denies hx of heart surgeries. Denies PMHx of DM, HTN, COPD. Denies hx of tobacco use. PSHx: hysterectomy. - History of Current Complaint Chief Complaint: EDChestPainROMI Time Seen by Provider: 09/21/19 07:02 Hx Obtained From: Patient Onset/Duration: Started Hours Ago, Still Present Timing: Lasting Hours Current Severity: Mild Pain Intensity: 4 Pain Scale Used: 0-10 Numeric Chest Pain Radiates: No Character: Heaviness Aggravating Factor(s): Nothing Alleviating Factor(s): Nothing Associated Signs and Symptoms: Positive: Chest Pain, Headaches, Shortness of Breath, Nausea, Abdominal Pain, Other: - POSITIVE: sore throat. Negative: Fever , Cough, Back Pain, Vomiting - Additional Pertinent History Primary Care Physician: [id number] - Allergy/Home Medications Allergies/Adverse Reactions: Allergies Allergy/AdvReac Type Severity Reaction Status Date / Time amoxicillin [From Augmentin] Allergy GI Upset Verified 09/06/19 11:38 clavulanic acid Allergy GI Upset Verified 09/06/19 11:38 [From Augmentin] gatifloxacin Allergy Shortness Verified 09/06/19 11:38 of Breath metronidazole [From Flagyl] Allergy Unknown Verified 09/06/19 11:38 Reaction Details nitrofurantoin Allergy Unknown Verified 09/06/19 11:38 Reaction Details Quinolones Allergy Unknown Verified 09/06/19 11:38 Reaction Details Sulfa (Sulfonamide Allergy Unknown Verified 09/06/19 11:38 Antibiotics) Reaction Details CRAB/SHRIMP/LOBSTER Allergy Unknown Uncoded 09/06/19 11:38 Reaction Details Home Medications: Home Medications Aspirin 81 mg CHEW TAB* 81 mg PO DAILY 08/25/12 [History Confirmed 09/21/19] Omeprazole CAP (NF) [Prilosec CAP* 20 MG] 40 mg PO DAILY 08/25/12 [History Confirmed 09/21/19] Multivitamin [Multivitamins] 1 cap PO DAILY 10/05/13 [History Confirmed 09/21/19 ] Lactobacillus Acidophilus [Probiotic] 1 cap PO DAILY 03/01/16 [History Confirmed 09/21/19] Calcium Carb/Mag Ox/Zinc Sulf [Calcium & Magnesium + Zin 334-134-5 mg] 1 tab PO TID 09/06/19 [History Confirmed 09/21/19] Cyclosporine 0.05% OPHTH (NF) [Restasis 0.05% OPHTH] 1 drop BOTH EYES Q12H 09/05 [History Confirmed 09/21/19] EPINEPHrine [Epipen-Jr 2-King] 0.15 mg IM ONCE PRN 09/06/19 [History Confirmed ] Red Yeast Rice 1,200 mg PO BID 09/06/19 [History Confirmed 09/21/19] PMH/Surg Hx/FS Hx/Imm Hx Endocrine/Hematology History: Denies: Hx Diabetes, Hx Thyroid Disease Cardiovascular History: Reports: Hx Hypercholesterolemia, Other Cardiovascular Problems/Disorders - CARDIAC CATH 2010, HLD Denies: Hx Hypertension, Hx Myocardial Infarction, Hx Pacemaker/ICD, Hx Peripheral Vascular Disease Respiratory History: Reports: Other Respiratory Problems/Disorders - 03/01/16 recent cold Denies: Hx Chronic Obstructive Pulmonary Disease (COPD) GI History: Reports: Hx Diverticulosis, Hx Gastroesophageal Reflux Disease - ON MEDICATION FOR, Other GI Disorders - hx diverticulitis dx several yrs ago History: Denies: Hx Dialysis, Hx Renal Disease Musculoskeletal History: Reports: Hx Arthritis, Hx Osteoporosis, Other Musculoskeletal History - spinal stenosis, arthritis/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 Sensory History: Reports: Hx Hearing Aid - LEFT EAR Denies: Hx Cataracts, Hx Contacts or Glasses, Hx Glaucoma Opthamlomology History: Denies: Hx Cataracts, Hx Contacts or Glasses, Hx Glaucoma Neurological History: Reports: Hx Headaches, Other Neuro Impairments/Disorders - sciatica right chronic Psychiatric History: Reports: Hx Anxiety, Hx Depression - Worsening since dog Denies: Hx Panic Disorder - Cancer History Hx Chemotherapy: No Hx Radiation Therapy: No - Surgical History Surgical History: Yes Surgery Procedure, Year, and Place: PARTIAL HYSTERECTOMY ,GALLBLADDER 1999, APPENDECTOMY, heart cath 2010. BACK SURGERY- 3 YEARS AGO Hx Anesthesia Reactions: Yes - MANY YEARS AGO- X1 SLOW TO WAKE UP - Immunization History Date of Influenza Vaccine: 03/2013 Infectious Disease History: No Infectious Disease History: Denies: Traveled Outside the [place] in Last 30 Days - Family History Family History: FHx of Breast Cancer (Mother) - Social History Alcohol Use: Daily Alcohol Amount: 1 SHOT PER NIGHT Substance Use Type: Reports: None Smoking Status (MU): Never Smoked Tobacco Review of Systems Negative: Fever Positive: Sore Throat Positive: Chest Pain Positive: Shortness Of Breath. Negative: Cough Positive: Abdominal Pain, Nausea. Negative: Vomiting Negative: Other - NEGATIVE: back pain Positive: Headache All Other Systems Reviewed And Are Negative: Yes Physical Exam - Summary Physical Exam Summary: Constitutional: Well-developed, Well-nourished, Alert. (-) Distressed Skin: Warm, Dry HENT: Normocephalic; Atraumatic Eyes: Conjunctiva normal Neck: Musculoskeletal ROM normal neck. (-) JVD, (-) Stridor, (-) Tracheal deviation Cardio: Rhythm regular, rate normal, Heart sounds normal; Intact distal pulses; The pedal pulses are 2+ and symmetric. Radial pulses are 2+ and symmetric. (-) Murmur Pulmonary/Chest wall: Effort normal. (-) Respiratory distress, (-) Wheezes, (-) Rales Abd: Soft, tenderness in the suprapubic and LLQ region, slight distension, (-) Guarding, (-) Rebound Musculoskeletal: (-) Edema Lymph: (-) Cervical adenopathy Neuro: Alert, Oriented x3 Psych: Mood and affect Normal Triage Information Reviewed: Yes Vital Signs On Initial Exam: Initial Vitals Temp Pulse Resp BP Pulse Ox 97.1 F 71 18 151/82 96 09/21/19 06:46 09/21/19 06:46 09/21/19 06:46 09/21/19 06:46 09/21/19 06:46 Vital Signs Reviewed: Yes Procedures - Sedation Patient Received Moderate/Deep Sedation with Procedure: No Diagnostics - Vital Signs Vital Signs Temp Pulse Resp BP Pulse Ox 09/21/19 06:46 97.1 F 71 18 151/82 96 - Laboratory Result Diagrams: 09/21/19 07:42 09/21/19 07:42 Lab Statement: Any lab studies that have been ordered have been reviewed, and results considered in the medical decision making process. - Radiology Chest XR Radiology Interpretation Completed By: Radiologist Summary of Radiographic Findings: IMPRESSION: No acute cardiopulmonary process by radiograph. Dr. Borges has reviewed this report. - CT CT abdomen/pelvis CT Interpretation Completed By: Radiologist Summary of CT Findings: IMPRESSION: Diverticulosis of the sigmoid colon without definite evidence of diverticulitis with a moderate amount of stool throughout the colon. No abnormal masses or fluid collections are noted. Patient is status post cholecystectomy. Dr. Borges has reviewed this report. - EKG 0657 Cardiac Rate: NL - at 68 bpm EKG Rhythm: Sinus Rhythm Summary of EKG Findings: EKG at 0657 shows sinus rhythm at a rate of 68 bpm. Borderline repolarization abnormalities. Dr. Borges has reviewed and interpreted [facility] EKG. Re-Evaluation - Re-Evaluation First Eval Re-Evaluation Time: 11:12 Change: Improved Comment: Patient states "I feel a lot better." Chest Pain Course/Dx - Course Assessment/Plan: Patient is an 84 y/o female presenting to [facility] c/o chest pain and abd pain today. Patient describes her chest pain "an elephant sitting" on her chest that is nonradiating. She notes associated nausea, difficulty breathing, headache. Patient received 324 mg of aspirin and nitro x1 by EMS [employer] today. Lab results are unremarkable except for AST of 46. EKG is a sinus rhythm at 68 bpm with borderline repolarization abnormalities. Chest XR shows no acute cardiopulmonary process by radiograph. CT abdomen/pelvis reveals diverticulosis of the sigmoid colon without definite evidence of diverticulitis with a moderate amount of stool throughout the colon. No abnormal masses or fluid collections are noted. Patient is status post cholecystectomy. In the ED course the patient was given IV fluids. On re-evaluation patient states "I feel a lot better.". Patient will be discharged home with follow up from her PCP in 2-3 days. - Diagnoses Provider Diagnoses: Chest pain, Abdominal pain, Diverticulosis Discharge ED - Sign-Out/Discharge Documenting (check all that apply): Patient Departure - Discharge home - Discharge Plan Condition: Stable Disposition: HOME Patient Education Materials: Chest Pain (ED), Diverticulosis (ED), Abdominal Pain (ED) Referrals: Owen Moraes MD [Primary Care Provider] - Additional Instructions: RETURN TO THE EMERGENCY DEPARTMENT FOR CHANGING OR WORSENING SYMPTOMS. Follow up with your primary care provider in 2-3 days. - Billing Disposition and Condition Condition: STABLE Disposition: Home - Attestation Statements Document Initiated by Scribe: Yes Documenting Scribe: Tori Sanford Provider For Whom Gen is Documenting (Include Credential): Davion Borges DO Scribarian Attestation: Tori Montoya scribed for Davion Borges DO on 09/21/19 at 1238. Scribe Documentation Reviewed: Yes Provider Attestation: The documentation as recorded by the Tori patel accurately reflects the service I personally performed and the decisions made by Davion waters DO Status of Scribe Document: Viewed
[2019-09-21 07:52] LABS: ABS Basophils 0.1 10^3/ul (0-0.2); ABS Eosinophils 0.2 10^3/ul (0-0.6); ABS Lymphocytes 2.3 10^3/ul (1.0-4.8); ABS Monocytes 0.8 10^3/ul (0-0.8); Eosinophil % 2.2 %; Hematocrit 39 % (35-47); Hemoglobin 13.2 g/dL (12.0-16.0); Lymphocyte % 27.4 %; Mean Corpuscular HGB Conc 34 g/dL (31-36); Mean Corpuscular Hemoglobin 31 pg (27-31); Mean Corpuscular Volume 91 fL (80-97); Mean Platelet Volume 7.8 fL (7.4-10.4); Platelet Count 379 10^3/uL (150-450); Red Blood Count 4.21 10^6 /uL (3.70-4.87); Red Cell Distribution Width 14 % (10-15); White Blood Count 8.2 10^3/uL (3.5-10.8)
[2019-09-21 08:07] LABS: Albumin 4.3 g/dL (3.2-5.2); Calcium 10.3 mg/dL (8.6-10.3); Potassium 4.3 mmol/L (3.5-5.0); Total Bilirubin 0.3 mg/dL (0.2-1.0)
[2019-09-21 08:13] LABS: Albumin/Globulin Ratio 1.4 (1-3); BUN/Creatinine Ratio 14.1 (8-20); EGFR African American 84.9 (>60); EGFR Non-African American 70.2 (>60); Globulin 3.1 g/dL (2-4); Total Protein 7.4 g/dL (6.4-8.9)
[2019-09-21] MEDS ORDERED: Iohexol 300* (CONTRAST) 10 ML SDV IV ONE (08:41)
[2019-09-21 11:29] VITALS: BP 157/79
== END 2019-09-21 11:29 | disposition home or self-care (01) ==
LOC: ED 06:42
DX: R07.9 Chest pain, unspecified (principal); R10.9 Unspecified abdominal pain; K57.30 Diverticulosis of large intestine without perforation or abscess without bleeding; E78.00 Pure hypercholesterolemia, unspecified; K21.9 Gastro-esophageal reflux disease without esophagitis; F41.9 Anxiety disorder, unspecified; F32.9 Major depressive disorder, single episode, unspecified; Z90.710 Acquired absence of both cervix and uterus; Z90.49 Acquired absence of other specified parts of digestive tract; Z90.89 Acquired absence of other organs; Z79.82 Long term (current) use of aspirin; Z79.899 Other long term (current) drug therapy; Z88.0 Allergy status to penicillin; Z88.1 Allergy status to other antibiotic agents; Z88.2 Allergy status to sulfonamides
CPT/HCPCS: 36415; 71045; 74177; 80053; 83605; 84484; 85025; 93005; 96360; 96361; 99284; Q9967

== ENCOUNTER 2020-08-03 12:41 | Observation (INO) ==
[2020-08-03 13:22] LABS: ABS Basophils 0.1 10^3/ul (0-0.2); ABS Eosinophils 0.1 10^3/ul (0-0.6); ABS Lymphocytes 1.6 10^3/ul (1.0-4.8); ABS Monocytes 0.6 10^3/ul (0-0.8); ABS Neutrophils 6.2 10^3/ul (1.5-7.7); Eosinophil % 1.7 %; Hematocrit 37 % (35-47); Hemoglobin 13.3 g/dL (12.0-16.0); Lymphocyte % 18.6 %; Mean Corpuscular HGB Conc 36 g/dL (31-36); Mean Corpuscular Hemoglobin 33 pg (27-31); Mean Corpuscular Volume 93 fL (80-97); Mean Platelet Volume 7.7 fL (7.4-10.4); Platelet Count 407 10^3/uL (150-450); Red Blood Count 4.02 10^6 /uL (3.70-4.87); Red Cell Distribution Width 13 % (10-15); White Blood Count 8.5 10^3/uL (3.5-10.8)
[2020-08-03 13:50] LABS: ALT 16 U/L (7-52); Albumin 4.2 g/dL (3.2-5.2); Albumin/Globulin Ratio 1.6 (1-3); Alkaline Phosphatase 54 U/L (34-104); BUN/Creatinine Ratio 11.5 (8-20); Blood Urea Nitrogen 10 mg/dL (6-24); CO2 Carbon Dioxide 23 mmol/L (22-32); Calcium 9.1 mg/dL (8.6-10.3); Chloride 105 mmol/L (101-111); EGFR African American 74.7 (>60); EGFR Non-African American 61.7 (>60); Globulin 2.7 g/dL (2-4); Glucose 111 mg/dL (70-100); Sodium 134 mmol/L (135-145); Total Protein 6.9 g/dL (6.4-8.9)
[2020-08-03 14:49] LABS: TSH Ultra Thyroid Stim Horm 4.44 mcIU/mL (0.34-5.60)
[2020-08-03 14:51] LABS: Anion Gap 6 mmol/L (2-11)
[2020-08-03 16:08] LABS: Magnesium 1.7 mg/dL (1.9-2.7); Potassium Redraw 3.6 mmol/L (3.5-5.0)
[2020-08-03 17:26] LABS: Urine Appearance Cloudy; Urine Bilirubin Negative (Negative); Urine Blood Negative (Negative); Urine Color Yellow; Urine Glucose Negative (Negative); Urine Ketones Trace (Negative); Urine Nitrite Negative (Negative); Urine Protein 1+(30 mg/dL) (Negative); Urine Specific Gravity 1.015 (1.010-1.030); Urine Urobilinogen Negative (Negative)
[2020-08-03 17:38] LABS: Urine Bacteria Absent (Absent); Urine Red Blood Cell Trace(0-2/hpf) (Absent); Urine Squamous Epithelial Cell Present (Absent); Urine White Blood Cell 1+(6-10/hpf) (Absent)
[2020-08-03] MEDS ORDERED: Enoxaparin 30 MG/0.3 ML SYR SUBCUT SCH (21:00)
[2020-08-04] MEDS ORDERED: NS 0.9% 500 ml BAG 500 ML IV SCH (02:00)
[2020-08-04 04:47] LABS: BUN/Creatinine Ratio 14.5 (8-20); Calcium 9.1 mg/dL (8.6-10.3); EGFR African American 110.4 (>60); EGFR Non-African American 91.3 (>60); HDL Cholesterol 46.4 mg/dL; Potassium 3.8 mmol/L (3.5-5.0)
[2020-08-04] MEDS ORDERED: NS 0.9% 1000 ml BAG 1,000 ML IV SCH (08:00)
[2020-08-04 12:29] VITALS: BP 151/75
== END 2020-08-04 15:10 | disposition home or self-care (01) ==
LOC: ED 12:41 → MEDTELE 12:41
PROVIDERS: ADMIT Internal Medicine; ATTEND Internal Medicine

== ENCOUNTER 2021-04-16 19:38 | Observation (INO) ==
[2021-04-16] MEDS ORDERED: NS 0.9% 1000 ml BAG 1,000 ML IV ONE (20:02)
[2021-04-16] MEDS ORDERED: Droperidol 5 MG/2 ML 2 ML VIAL IV ONE (20:03)
[2021-04-16 20:50] LABS: ABS Eosinophils 0.1 10^3/ul (0-0.6); ABS Lymphocytes 0.5 10^3/ul (1.0-4.8); ABS Monocytes 0.6 10^3/ul (0-0.8); ABS Neutrophils 12.6 10^3/ul (1.5-7.7); Eosinophil % 0.5 %; Hematocrit 42 % (35-47); Hemoglobin 14.2 g/dL (12.0-16.0); Lymphocyte % 3.4 %; Mean Corpuscular HGB Conc 34 g/dL (31-36); Mean Corpuscular Hemoglobin 32 pg (27-31); Mean Corpuscular Volume 93 fL (80-97); Mean Platelet Volume 7.7 fL (7.4-10.4); Platelet Count 376 10^3/uL (150-450); Red Blood Count 4.48 10^6 /uL (3.70-4.87); Red Cell Distribution Width 13 % (10-15); White Blood Count 13.8 10^3/uL (3.5-10.8)
[2021-04-16 21:10] LABS: Troponin I 0.01 ng/mL (<0.03)
[2021-04-16 21:18] LABS: Albumin 4.2 g/dL (3.2-5.2); Albumin/Globulin Ratio 1.4 (1-3); Calcium 9.7 mg/dL (8.6-10.3); Globulin 3.1 g/dL (2-4); Potassium 3.8 mmol/L (3.5-5.0); Total Bilirubin 0.5 mg/dL (0.2-1.0); Total Protein 7.3 g/dL (6.4-8.9)
[2021-04-17] MEDS ORDERED: Iohexol 300 (CONTRAST) 10 ML SDV IV ONE (00:14)
[2021-04-17 04:29] LABS: Rapid COVID-19 Molecular Undetected (Undetected)
[2021-04-17] MEDS ORDERED: Ondansetron 4 mg VIAL 2 MG/ML 2 ml VIAL IV PRN (05:51)
[2021-04-17 05:53] LABS: C Reactive Protein 1.77 mg/L (<8.01)
[2021-04-17] MEDS ORDERED: NS 0.9% 1000 ml BAG 1,000 ML IV SCH (06:00)
[2021-04-17] MEDS ORDERED: Enoxaparin 40 MG/0.4 ML SYR SUBCUT SCH (06:00)
[2021-04-17 07:34] LABS: ABS Lymphocytes 0.4 10^3/ul (1.0-4.8); ABS Monocytes 0.5 10^3/ul (0-0.8); ABS Neutrophils 9.5 10^3/ul (1.5-7.7); Hematocrit 40 % (35-47); Hemoglobin 13.6 g/dL (12.0-16.0); Lymphocyte % 4.2 %; Mean Corpuscular HGB Conc 34 g/dL (31-36); Mean Corpuscular Hemoglobin 32 pg (27-31); Mean Corpuscular Volume 93 fL (80-97); Mean Platelet Volume 7.1 fL (7.4-10.4); Platelet Count 378 10^3/uL (150-450); Red Blood Count 4.29 10^6 /uL (3.70-4.87); Red Cell Distribution Width 13 % (10-15); White Blood Count 10.5 10^3/uL (3.5-10.8)
[2021-04-17 07:50] LABS: Calcium 9.2 mg/dL (8.6-10.3); Potassium 3.7 mmol/L (3.5-5.0)
[2021-04-17] MEDS ORDERED: NS 0.9% w/ 20 Meq KCL 1000 ml 1,000 ML IV SCH (12:00)
[2021-04-17 15:13] VITALS: BP 125/62
[2021-04-18] MEDS ORDERED: cefTRIAXone 1 gm/50 mL NS BAG 1 GM/50 ML BAG IVPB SCH (09:00)
== END 2021-04-17 17:00 ==
LOC: ED 19:38 → MED 19:38 → SUATTDRO 04-17 05:51 → MED 04-17 11:32
PROVIDERS: ADMIT Internal Medicine; ATTEND Internal Medicine

== ENCOUNTER 2022-12-28 10:00 | Inpatient (IN) ==
[2022-12-28] MEDS ORDERED: Morphine 2 MG/ML SYRINGE IV ONE (11:12)
[2022-12-28 11:31] LABS: ABS Basophils 0.1 10^3/uL (0.0-0.1); ABS Eosinophils 0.1 10^3/uL (0.0-0.5); ABS Lymphocytes 2.4 10^3/uL (1.0-4.8); ABS Monocytes 0.9 10^3/uL (0.0-0.9); ABS Neutrophils 4.9 10^3/uL (1.5-7.6); Eosinophil % 1.5 %; Hematocrit 38.5 % (35-45); Hemoglobin 13.3 g/dL (11.5-14.3); Lymphocyte % 28.8 %; Mean Corpuscular Hemoglobin 31.2 pg (27-33); Mean Corpuscular Hgb Conc 34.6 g/dL (31-36); Mean Corpuscular Volume 90.2 fL (80-97); Platelet Count 408 10^3/uL (150-450); Red Blood Count 4.27 10^6/uL (3.63-4.92); Red Cell Distribution Width 13.6 % (12-17); White Blood Count 8.3 10^3/uL (3.8-11.8)
[2022-12-28 11:47] LABS: Albumin 4.1 g/dL (3.2-5.2); Albumin/Globulin Ratio 1.2 (1-3); Creatinine, Serum 0.61 mg/dL (0.51-0.95); Globulin 3.3 g/dL (2-4); Total Bilirubin 0.5 mg/dL (0.2-1.0); Total Protein 7.4 g/dL (6.4-8.9); eGFR CKD-EPI 85.9 (>60)
[2022-12-28] MEDS ORDERED: Morphine 2 MG/ML SYRINGE IV PRN (15:07)
[2022-12-28] MEDS ORDERED: Naloxone Nasal Spray 4 MG/0.1 ML NASAL.SPR INTRANASAL PRN (18:37)
[2022-12-28] MEDS: Morphine 2 MG/ML SYRINGE IV PRN (19:59)
[2022-12-29 04:42] LABS: ABS Basophils 0.1 10^3/uL (0.0-0.1); ABS Lymphocytes 1.7 10^3/uL (1.0-4.8); ABS Monocytes 0.7 10^3/uL (0.0-0.9); ABS Neutrophils 6.5 10^3/uL (1.5-7.6); Eosinophil % 0.1 %; Hematocrit 35.9 % (35-45); Hemoglobin 12.5 g/dL (11.5-14.3); Lymphocyte % 19.3 %; Mean Corpuscular Hemoglobin 32.2 pg (27-33); Mean Corpuscular Hgb Conc 34.9 g/dL (31-36); Mean Corpuscular Volume 92.3 fL (80-97); Mean Platelet Volume 7.2 fL (7.5-11.2); Platelet Count 414 10^3/uL (150-450); Red Blood Count 3.88 10^6/uL (3.63-4.92); Red Cell Distribution Width 13.5 % (12-17)
[2022-12-29 04:59] LABS: Blood Urea Nitrogen 14 mg/dL (6-24); CO2 Carbon Dioxide 26 mmol/L (22-32); Calcium 9.5 mg/dL (8.6-10.3); Chloride 101 mmol/L (101-111); Creatinine, Serum 0.57 mg/dL (0.51-0.95); Glucose 117 mg/dL (70-100); Sodium 135 mmol/L (135-145); eGFR CKD-EPI 87.4 (>60)
[2022-12-29 05:04] LABS: Anion Gap 8 mmol/L (2-16)
[2022-12-29] MEDS: Morphine 2 MG/ML SYRINGE IV PRN ×3 (05:48→19:29)
[2022-12-29 05:55] LABS: Magnesium 2.2 mg/dL (1.9-2.7); Potassium Redraw 3.8 mmol/L (3.5-5.0)
[2022-12-29] MEDS ORDERED: Polyethylene Glycol 3350 17 GM PACKET PO SCH (09:00)
[2022-12-29] MEDS ORDERED: Lorazepam PYXIS KEY PRN (09:07)
[2022-12-29] MEDS: Lactated Ringers 1000 ml BAG 1,000 ML IV ONE (13:02)
[2022-12-29 13:14] LABS: Urine Appearance Clear; Urine Bilirubin Negative (Negative); Urine Blood Negative (Negative); Urine Color Yellow; Urine Glucose Negative (Negative); Urine Ketones 2+ (Negative); Urine Nitrite Negative (Negative); Urine Protein Negative (Negative); Urine Specific Gravity 1.015 (1.002-1.030); Urine Urobilinogen Negative (Negative)
[2022-12-29] MEDS ORDERED: Rocuronium 50 mg VIAL 10 mg/ml 5 ml VIAL (50 mg) ONE (15:52)
[2022-12-29] MEDS ORDERED: Phenylephrine 40 mcg/mL 10mL (400mcg) SYRINGE ONE (15:53)
[2022-12-29] MEDS ORDERED: Propofol 10 MG/ML 20 ML BTL ONE (15:53)
[2022-12-29] MEDS ORDERED: fentaNYL 100 mcg/2 ml 50 MCG/ML VIAL ONE (15:55)
[2022-12-29] MEDS ORDERED: Bupivacaine 0.5% W/EPI SDV 10 ML VIAL INJ ONE (16:27)
[2022-12-29] MEDS ORDERED: Vancomycin 1,000 MG VIAL ONE (16:28)
[2022-12-29 19:24] LABS: ABS Basophils 0.1 10^3/uL (0.0-0.1); ABS Eosinophils 0.1 10^3/uL (0.0-0.5); ABS Lymphocytes 2.3 10^3/uL (1.0-4.8); ABS Neutrophils 6.5 10^3/uL (1.5-7.6); ABS Nucleated RBC 0.01 10^3/ul; Hemoglobin 12.8 g/dL (11.5-14.3); Lymphocyte % 23.1 %; Mean Corpuscular Hemoglobin 31.2 pg (27-33); Mean Corpuscular Hgb Conc 33.7 g/dL (31-36); Mean Corpuscular Volume 92.7 fL (80-97); Nucleated Red Blood Cells % 0.1 /100 WBC (0.0-0.4); Platelet Count 441 10^3/uL (150-450); Red Blood Count 4.09 10^6/uL (3.63-4.92); Red Cell Distribution Width 13.5 % (12-17)
[2022-12-29 19:32] LABS: Activated Partial Thrombo Time 31.3 seconds (26.0-38.0); INR 1.09 (0.88-1.18)
[2022-12-29] MEDS: Acetaminophen IV 1 GM/100ML 1,000 MG/100 ML BAG IV SCH (19:36)
[2022-12-29 19:40] LABS: Creatinine, Serum 0.67 mg/dL (0.51-0.95)
[2022-12-29] MEDS ORDERED: Heparin 5000 UNITS/ML 1 mL VIAL SUBCUT ONE (20:00)
[2022-12-30] MEDS: Morphine 2 MG/ML SYRINGE IV PRN ×3 (00:57→10:27)
[2022-12-30] MEDS: Acetaminophen IV 1 GM/100ML 1,000 MG/100 ML BAG IV SCH ×3 (02:33→22:32)
[2022-12-30 06:19] LABS: ABS Basophils 0.1 10^3/uL (0.0-0.1); ABS Eosinophils 0.2 10^3/uL (0.0-0.5); ABS Lymphocytes 1.8 10^3/uL (1.0-4.8); ABS Monocytes 0.9 10^3/uL (0.0-0.9); ABS Neutrophils 5.3 10^3/uL (1.5-7.6); ABS Nucleated RBC 0.01 10^3/ul; Eosinophil % 1.9 %; Hematocrit 35.5 % (35-45); Lymphocyte % 21.6 %; Mean Corpuscular Hemoglobin 31.3 pg (27-33); Mean Corpuscular Hgb Conc 33.8 g/dL (31-36); Mean Corpuscular Volume 92.6 fL (80-97); Mean Platelet Volume 7.4 fL (7.5-11.2); Nucleated Red Blood Cells % 0.1 /100 WBC (0.0-0.4); Platelet Count 397 10^3/uL (150-450); Red Blood Count 3.83 10^6/uL (3.63-4.92); Red Cell Distribution Width 13.5 % (12-17); White Blood Count 8.2 10^3/uL (3.8-11.8)
[2022-12-30 06:40] LABS: Calcium 9.2 mg/dL (8.6-10.3); Creatinine, Serum 0.54 mg/dL (0.51-0.95); Potassium 3.9 mmol/L (3.5-5.0); eGFR CKD-EPI 88.5 (>60)
[2022-12-30] MEDS ORDERED: Lactated Ringers 1000 ml BAG 1,000 ML IV ONE ×2 (07:52→22:40)
[2022-12-30] MEDS: LORazepam 2 mg VIAL 1 ml IV PUSH SCH (10:34)
[2022-12-30] MEDS ORDERED: ceFAZolin 2 GM in NS PREMIX 2 GM/100 ML BAG IVPB ONE (14:18)
[2022-12-30] MEDS ORDERED: Ropivacaine 5 MG/ML 20 ML VIAL 0.5% (100 MG) ONE (16:20)
[2022-12-30] MEDS ORDERED: Bupivacaine 0.5% 50 ML MDV VIAL ONE (16:35)
[2022-12-30] MEDS ORDERED: Lidocaine 2% PF 5 ML VIAL ONE (16:52)
[2022-12-30] MEDS ORDERED: fentaNYL 100 mcg/2 ml 50 MCG/ML VIAL ONE (16:52)
[2022-12-30] MEDS ORDERED: Ondansetron 4 mg VIAL 2 MG/ML 2 ml VIAL IV PRN (17:31)
[2022-12-30] MEDS ORDERED: Acetaminophen IV 1 GM/100ML 1,000 MG/100 ML BAG IV PRN (17:31)
[2022-12-30] MEDS ORDERED: fentaNYL 100 mcg/2 ml 50 MCG/ML VIAL IV PRN (17:31)
[2022-12-30] MEDS ORDERED: HYDROmorphone 1 MG/1 ML SYRINGE IV PRN (17:31)
[2022-12-30] MEDS ORDERED: Naloxone 0.4 mg VIAL 0.4 mg/ml 1 ml VIAL IV PRN (17:31)
[2022-12-30] MEDS ORDERED: Dexamethasone IV 4 MG/ML VIAL 1 ml VIAL ONE (17:44)
[2022-12-30] MEDS ORDERED: Ondansetron 4 mg VIAL 2 MG/ML 2 ml VIAL ONE (17:44)
[2022-12-30] MEDS ORDERED: Propofol 10 MG/ML 20 ML BTL ONE (18:07)
[2022-12-30] MEDS ORDERED: Acetaminophen IV 1 GM/100ML 1,000 MG/100 ML BAG IV ONE (18:35)
[2022-12-30] MEDS: Lactated Ringers 1000 ml BAG 1,000 ML IV ONE (23:01)
[2022-12-31] MEDS: ceFAZolin 1 GM X 3 DOSES POST-OP Q8H (AddVan) IVPB SCH ×3 (01:45→20:08)
[2022-12-31] MEDS: Acetaminophen IV 1 GM/100ML 1,000 MG/100 ML BAG IV SCH ×2 (02:24→10:40)
[2022-12-31 07:40] LABS: Mean Corpuscular Hemoglobin 31.8 pg (27-33); Mean Corpuscular Hgb Conc 34.5 g/dL (31-36); Mean Corpuscular Volume 92.1 fL (80-97); Mean Platelet Volume 7.1 fL (7.5-11.2); Platelet Count 373 10^3/uL (150-450); Red Blood Count 3.47 10^6/uL (3.63-4.92); Red Cell Distribution Width 13.5 % (12-17); White Blood Count 8.9 10^3/uL (3.8-11.8)
[2022-12-31 08:28] LABS: Creatinine, Serum 0.56 mg/dL (0.51-0.95); Magnesium 1.9 mg/dL (1.9-2.7); Potassium 4.1 mmol/L (3.5-5.0); eGFR CKD-EPI 87.7 (>60)
[2022-12-31] MEDS: LORazepam 2 mg VIAL 1 ml IV PUSH SCH (08:31)
[2022-12-31] MEDS: Enoxaparin 40 MG/0.4 ML SYR SUBCUT SCH (08:32)
[2022-12-31] MEDS ORDERED: D5W 1/2 NS 1000 ml BAG 1,000 ML IV SCH (12:00)
[2023-01-01 06:47] LABS: ABS Eosinophils 0.1 10^3/uL (0.0-0.5); ABS Lymphocytes 1.8 10^3/uL (1.0-4.8); ABS Neutrophils 6.5 10^3/uL (1.5-7.6); Eosinophil % 1.2 %; Hematocrit 31.3 % (35-45); Hemoglobin 10.8 g/dL (11.5-14.3); Lymphocyte % 18.9 %; Mean Corpuscular Hemoglobin 31.9 pg (27-33); Mean Corpuscular Hgb Conc 34.4 g/dL (31-36); Mean Corpuscular Volume 92.7 fL (80-97); Mean Platelet Volume 7.3 fL (7.5-11.2); Platelet Count 365 10^3/uL (150-450); Red Blood Count 3.38 10^6/uL (3.63-4.92); Red Cell Distribution Width 13.3 % (12-17); White Blood Count 9.4 10^3/uL (3.8-11.8)
[2023-01-01 07:05] LABS: Calcium 8.8 mg/dL (8.6-10.3); Creatinine, Serum 0.53 mg/dL (0.51-0.95); Magnesium 1.8 mg/dL (1.9-2.7); Potassium 3.7 mmol/L (3.5-5.0); eGFR CKD-EPI 88.9 (>60)
[2023-01-01] MEDS: Enoxaparin 40 MG/0.4 ML SYR SUBCUT SCH (08:09)
[2023-01-01] MEDS ORDERED: Potassium EFFERVES 25 meq TAB PO ONE (08:45)
[2023-01-02] MEDS: Enoxaparin 40 MG/0.4 ML SYR SUBCUT SCH (08:14)
[2023-01-03] MEDS ORDERED: Polyethylene Glycol 3350 17 GM PACKET PO SCH (08:00)
[2023-01-03] MEDS: Enoxaparin 40 MG/0.4 ML SYR SUBCUT SCH (08:01)
[2023-01-03] MEDS: Lactulose 30 ml UDC PO SCH (22:15)
[2023-01-03] MEDS: Senna TAB 8.6 mg TAB PO SCH (22:15)
[2023-01-04 06:50] LABS: Hematocrit 30.7 % (35-45); Hemoglobin 10.9 g/dL (11.5-14.3); Mean Corpuscular Hemoglobin 32.4 pg (27-33); Mean Corpuscular Hgb Conc 35.4 g/dL (31-36); Mean Corpuscular Volume 91.5 fL (80-97); Mean Platelet Volume 7.2 fL (7.5-11.2); Platelet Count 473 10^3/uL (150-450); Red Blood Count 3.35 10^6/uL (3.63-4.92); Red Cell Distribution Width 13.4 % (12-17); White Blood Count 7.6 10^3/uL (3.8-11.8)
[2023-01-04 07:04] LABS: Calcium 9.3 mg/dL (8.6-10.3); Creatinine, Serum 0.46 mg/dL (0.51-0.95)
[2023-01-04] MEDS: Polyethylene Glycol 3350 17 GM PACKET PO SCH ×2 (08:27→16:37)
[2023-01-04] MEDS: Enoxaparin 40 MG/0.4 ML SYR SUBCUT SCH (08:27)
[2023-01-04] MEDS: Lactulose 30 ml UDC PO SCH ×2 (08:27→16:37)
[2023-01-04] MEDS: Senna TAB 8.6 mg TAB PO SCH (20:20)
[2023-01-05] MEDS: Enoxaparin 40 MG/0.4 ML SYR SUBCUT SCH (08:09)
[2023-01-05] MEDS: Polyethylene Glycol 3350 17 GM PACKET PO SCH (09:26)
[2023-01-05 18:22] LABS: ABS Basophils 0.1 10^3/uL (0.0-0.1); ABS Eosinophils 0.2 10^3/uL (0.0-0.5); ABS Lymphocytes 1.9 10^3/uL (1.0-4.8); ABS Monocytes 0.9 10^3/uL (0.0-0.9); ABS Neutrophils 4.4 10^3/uL (1.5-7.6); Eosinophil % 2.6 %; Hematocrit 31.2 % (35-45); Hemoglobin 10.8 g/dL (11.5-14.3); Lymphocyte % 24.7 %; Mean Corpuscular Hemoglobin 31.9 pg (27-33); Mean Corpuscular Hgb Conc 34.5 g/dL (31-36); Mean Corpuscular Volume 92.5 fL (80-97); Mean Platelet Volume 7.1 fL (7.5-11.2); Platelet Count 571 10^3/uL (150-450); Red Blood Count 3.37 10^6/uL (3.63-4.92); Red Cell Distribution Width 13.3 % (12-17); White Blood Count 7.5 10^3/uL (3.8-11.8)
[2023-01-05] MEDS: Senna TAB 8.6 mg TAB PO SCH (21:39)
[2023-01-06 05:51] LABS: ABS Basophils 0.1 10^3/uL (0.0-0.1); ABS Eosinophils 0.2 10^3/uL (0.0-0.5); ABS Lymphocytes 1.9 10^3/uL (1.0-4.8); ABS Monocytes 0.8 10^3/uL (0.0-0.9); ABS Neutrophils 4.6 10^3/uL (1.5-7.6); ABS Nucleated RBC 0.01 10^3/ul; Hematocrit 32.1 % (35-45); Hemoglobin 11.1 g/dL (11.5-14.3); Lymphocyte % 25.1 %; Mean Corpuscular Hemoglobin 31.9 pg (27-33); Mean Corpuscular Hgb Conc 34.6 g/dL (31-36); Mean Corpuscular Volume 92.2 fL (80-97); Mean Platelet Volume 6.9 fL (7.5-11.2); Nucleated Red Blood Cells % 0.1 /100 WBC (0.0-0.4); Platelet Count 611 10^3/uL (150-450); Red Blood Count 3.48 10^6/uL (3.63-4.92); Red Cell Distribution Width 13.4 % (12-17); White Blood Count 7.7 10^3/uL (3.8-11.8)
[2023-01-06] MEDS: Polyethylene Glycol 3350 17 GM PACKET PO SCH (08:55)
[2023-01-06] MEDS: Enoxaparin 40 MG/0.4 ML SYR SUBCUT SCH (08:55)
[2023-01-06] MEDS: Senna TAB 8.6 mg TAB PO SCH (19:20)
[2023-01-07] MEDS: Enoxaparin 40 MG/0.4 ML SYR SUBCUT SCH (08:35)
[2023-01-07] MEDS: Cholecalciferol (VIT D3) 1,000 unit TAB PO SCH (08:35)
[2023-01-07] MEDS: Polyethylene Glycol 3350 17 GM PACKET PO SCH (09:19)
[2023-01-07] MEDS: Senna TAB 8.6 mg TAB PO SCH (21:40)
[2023-01-08 04:49] LABS: ABS Eosinophils 0.3 10^3/uL (0.0-0.5); ABS Lymphocytes 2.3 10^3/uL (1.0-4.8); ABS Neutrophils 4.5 10^3/uL (1.5-7.6); ABS Nucleated RBC 0.01 10^3/ul; Eosinophil % 3.3 %; Hematocrit 28.8 % (35-45); Hemoglobin 10.2 g/dL (11.5-14.3); Lymphocyte % 28.4 %; Mean Corpuscular Hemoglobin 32.4 pg (27-33); Mean Corpuscular Hgb Conc 35.6 g/dL (31-36); Mean Platelet Volume 6.8 fL (7.5-11.2); Nucleated Red Blood Cells % 0.1 /100 WBC (0.0-0.4); Platelet Count 591 10^3/uL (150-450); Red Blood Count 3.17 10^6/uL (3.63-4.92); Red Cell Distribution Width 13.2 % (12-17); White Blood Count 8.1 10^3/uL (3.8-11.8)
[2023-01-08 05:57] VITALS: BP 110/57
[2023-01-08] MEDS: Cholecalciferol (VIT D3) 1,000 unit TAB PO SCH (08:55)
[2023-01-08] MEDS: Enoxaparin 40 MG/0.4 ML SYR SUBCUT SCH (08:55)
[2023-01-08 09:28] LABS: Rapid COVID-19 Molecular Undetected (Undetected)
[2023-01-08] MEDS: Polyethylene Glycol 3350 17 GM PACKET PO SCH (09:50)
== END 2023-01-08 11:59 | DRG 522 ==
LOC: ED 10:00 → EDHOLD 14:54 → SUATTDRO 14:54 → EDHOLD 12-29 14:01 → SSU 12-29 18:52
PROVIDERS: ADMIT Family Medicine; ATTEND Internal Medicine